=== PATIENT | female | born 1970 | race Caucasian/White ===

== ENCOUNTER 2019-04-05 09:00 | Emergency (ER) | payer OTHER ==
[~2019-04-05] VITALS: Ht 167.6 cm; Wt 122.5 kg
[~2019-04-05 09:00] MED LIST: FLUO20CA19 PO; HYDR-3164 PO; HYDR1TAB13 PO; IBUP-1060 PO; LEVO50TA5 PO; MULT1TAB52 PO; NAPR-683 PO; OLAN5TAB9 PO
[2019-04-05 09:15] VITALS: BP 136/91
[2019-04-05] MEDS ORDERED: KETOROLAC 15 MG/ML VIAL. IVP ONE (09:15)
[2019-04-05] MEDS ORDERED: METOCLOPRAMIDE HCL 10 MG/2 ML VIAL. IVP ONE (09:15)
[2019-04-05] MEDS ORDERED: IV NORMAL SALINE 1000ML BAG 1,000 ML IV ONE (09:30)
[2019-04-05] MEDS ORDERED: TAMSULOSIN 0.4 MG CAP.ER.24H. PO ONE (09:30)
--- NOTE | 2019-04-05 09:35 | PHYS DOC ---
Past Medical History Past Medical History: Anxiety, Hypothyroid, Kidney Stone Past Surgical History: Cholecystectomy, Tonsillectomy, Other Additional Past Surgical Histo: PARTIAL HYST,URETERAL STENT,LITHOTRIPSY Additional Information: Nonsmoker Alcohol Use: Rarely Drug Use: None Adult General Chief Complaint Chief Complaint: FLANK PAIN HPI HPI Patient is a 48-year-old female with a past medical history of kidney stones presents to the emergency department with confirmed kidney stones on CT scan done as an outpatient and right flank pain. Patient states that she was seen outpatient yesterday in [place] by her PCP because she was starting to feel like she had a kidney stone. [facility], outpatient CT scan showed a 10 mm and 2 mm stone in the right kidney with a 4 mm stone in the right ureter and to 2 mm stones in the left kidney. Patient denies fever, chills, nausea, vomiting, chest pain, shortness of breath, dysuria, change in frequency of urination. Patient states that her urine has been reddish color for the last 2 days. Patient has a prior history of hysterectomy. Patient is presenting to the emergency department today because the pain has got worse and she was not discharged with any pain medication yesterday. Review of Systems Review of Systems Constitutional: Denies fever or chills Eyes: Denies redness or eye pain HENT: Denies nasal congestion or sore throat Respiratory: Denies cough or shortness of breath Cardiovascular: Denies chest pain or palpitations GI: Denies abdominal pain, nausea, or vomiting : Denies dysuria, reports hematuria Musculoskeletal: Denies back pain or joint pain; reports right flank pain Integument: Denies rash or skin lesions Neurologic: Denies headache, focal weakness or sensory changes Complete systems were reviewed and found to be within normal limits, except as documented in this note. Current Medications Current Medications Current Medications Medications (Trade) Dose Ordered Sig/Gloria Start Time Stop Time Status Last Admin Dose Admin Ketorolac Tromethamine (Toradol 15mg Vial) 15 mg 1X ONCE 04/05/19 09:15 04/05/19 09:25 DC 04/05/19 09:43 15 MG Metoclopramide HCl (Reglan Vial) 10 mg 1X ONCE 04/05/19 09:15 04/05/19 09:25 DC 04/05/19 09:44 10 MG Sodium Chloride 1,000 ml @ 1,000 mls/hr 1X ONCE 04/05/19 09:30 04/05/19 10:29 DC 04/05/19 09:41 1,000 MLS/HR Tamsulosin HCl (Flomax) 0.4 mg 1X ONCE 04/05/19 09:30 04/05/19 09:31 DC 04/05/19 09:44 0.4 MG Allergies Allergies Allergies Coded Allergies Type Severity Reaction Last Updated Verified Penicillins Allergy Intermediate Hives 03/16/16 Yes Physical Exam Physical Exam Constitutional: Well developed, well nourished, no acute distress, non-toxic appearance HENT: Normocephalic, atraumatic, oropharynx moist Eyes: Conjunctiva normal, no discharge Neck: Normal range of motion, no tenderness, supple Cardiovascular: Heart rate normal, regular rhythm Lungs & Thorax: Bilateral breath sounds clear to auscultation, no wheezing Abdomen: Soft, no tenderness Skin: Warm, dry, no erythema, no rash Back: No tenderness, CVA tenderness on the right Extremities: No tenderness, ROM intact, no edema Neurologic: Alert and oriented X 3, no focal deficits noted Psychologic: Affect normal, judgement normal Current Patient Data Vital Signs Vital Signs Date Time Temp Pulse Resp B/P (MAP) Pulse Ox O2 Delivery O2 Flow Rate FiO2 04/05/19 09:15 97.8 105 18 136/91 (106) 95 Room Air 97.8 Lab Values Laboratory Tests Test 04/05/19 09:08 04/05/19 09:11 04/05/19 09:32 Urine Collection Type Unknown Urine Color Yellow Urine Clarity Clear Urine pH 8.0 Urine Specific [place] 1.015 Urine Protein Negative mg/dL (NEG-TRACE) Urine Glucose (UA) Negative mg/dL (NEG) Urine Ketones (Stick) Negative mg/dL (NEG) Urine Blood Large (NEG) Urine Nitrite Negative (NEG) Urine Bilirubin Negative (NEG) Urine Urobilinogen Dipstick 1.0 mg/dL (0.2 mg/dL) Urine Leukocyte Esterase Small (NEG) Urine RBC Tntc /HPF (0-2) Urine WBC 5-1 /HPF (0-4) Urine Squamous Epithelial Cells Many /LPF Urine Bacteria Moderate /HPF (0-FEW) Urine Mucus Marked /LPF POC Urine HCG, Qualitative Hcg negative (Negative) White Blood Count 6.7 x10^3/uL (4.0-11.0) Red Blood Count 4.81 x10^6/uL (3.50-5.40) Hemoglobin 14.0 g/dL (12.0-15.5) Hematocrit 41.7 % (36.0-47.0) Mean Corpuscular Volume 87 fL (79-100) Mean Corpuscular Hemoglobin 29 pg (25-35) Mean Corpuscular Hemoglobin Concent 34 g/dL (31-37) Red Cell Distribution Width 13.2 % (11.5-14.5) Platelet Count 258 x10^3/uL (140-400) Neutrophils (%) (Auto) 63 % (31-73) Lymphocytes (%) (Auto) 28 % (24-48) Monocytes (%) (Auto) 7 % (0-9) Eosinophils (%) (Auto) 2 % (0-3) Basophils (%) (Auto) 1 % (0-3) Neutrophils # (Auto) 4.2 x10^3/uL (1.8-7.7) Lymphocytes # (Auto) 1.9 x10^3/uL (1.0-4.8) Monocytes # (Auto) 0.4 x10^3/uL (0.0-1.1) Eosinophils # (Auto) 0.1 x10^3/uL (0.0-0.7) Basophils # (Auto) 0.1 x10^3/uL (0.0-0.2) Sodium Level 139 mmol/L (136-145) Potassium Level 4.0 mmol/L (3.5-5.1) Chloride Level 102 mmol/L (98-107) Carbon Dioxide Level 26 mmol/L (21-32) Anion Gap 11 (6-14) Blood Urea Nitrogen 13 mg/dL (7-20) Creatinine 0.8 mg/dL (0.6-1.0) Estimated GFR (Cockcroft-Gault) 77.2 BUN/Creatinine Ratio 16 (6-20) Glucose Level 107 mg/dL (70-99) H Calcium Level 8.8 mg/dL (8.5-10.1) Magnesium Level 1.9 mg/dL (1.8-2.4) Total Bilirubin 0.9 mg/dL (0.2-1.0) Aspartate Amino Transferase (AST) 23 U/L (15-37) Alanine Aminotransferase (ALT) 24 U/L (14-59) Alkaline Phosphatase 89 U/L (46-116) Total Protein 7.6 g/dL (6.4-8.2) Albumin 3.5 g/dL (3.4-5.0) Albumin/Globulin Ratio 0.9 (1.0-1.7) L Lipase 103 U/L (73-393) Laboratory Tests 04/05/19 09:32 Laboratory Tests 04/05/19 09:32 EKG EKG [] Radiology/Procedures Radiology/Procedures [] Course & Med Decision Making Course & Med Decision Making Pertinent Labs studies reviewed. (See chart for details) Patient is a 48-year-old female with past medical history of kidney stones is presenting to the emergency department with right flank pain and CT scan done as an outpatient showing obstructing kidney stone on right Patient seen and examined at bedside. Physical exam was significant for right-sided flank tenderness. Labs ordered. Pain addressed. UA likely contaminated, negative except for numerous RBCs. All other labs negative. And will be discharged with urology referral for outpatient management of kidney stones. Patient stable for discharge with outpatient follow-up with PCP/Urology. Discussed findings and plan with patient and family, who acknowledge understanding and agreement. Dragon Disclaimer Dragon Disclaimer This electronic medical record was generated, in whole or in part, using a voice recognition dictation system. Departure Departure Impression: Primary Impression: Ureteral stone with hydronephrosis Disposition: HOME, SELF-CARE Condition: STABLE Patient Instructions: Diet for Kidney Stones, Kidney Stones, [id number] Additional Instructions: May also use over the counter Ibuprofen (Motrin) for pain as needed. Max 600mg (three over the counter tabs) which you can take up to 3 times daily. Scripts Tamsulosin Hcl (FLOMAX) 0.4 Mg Cap.er.24h 1 CAP PO DAILY, #10 CAP Prov: JONATHAN CARTAGENA DO 04/05/19 Ondansetron (ONDANSETRON ODT) 4 Mg Tab.rapdis 1 TAB PO PRN Q6-8HRS PRN for NAUSEA, #16 TAB Prov: JONATHAN CARTAGENA DO 04/05/19 Hydrocodone/Apap 5-325 (NORCO 5-325 TABLET) 1 Each Tablet 0.5-1 TAB PO PRN Q6HRS PRN for PAIN, #14 TAB 0 Refills Prov: JONATHAN CARTAGENA DO 04/05/19 JONATHAN CARTAGENA DO Apr 05, 2019 09:35
[2019-04-05 09:36] LABS: BILIRUBIN,URINE NEGATIVE (NEG); CLARITY,URINE CLEAR; COLOR,URINE YELLOW; NITRITE,URINE NEGATIVE (NEG); PROTEIN,URINE NEGATIVE (NEG-TRACE)
[2019-04-05 09:39] LABS: BASO # 0.1 x10^3/uL (0.0-0.2); BASO % 1 % (0-3); EOS # 0.1 x10^3/uL (0.0-0.7); EOS % 2 % (0-3); HEMATOCRIT 41.7 % (36.0-47.0); LYMPH # 1.9 x10^3/uL (1.0-4.8); LYMPH % 28 % (24-48); MEAN CORPUSCULAR HEMOGLOBIN 29 pg (25-35); MEAN CORPUSCULAR HGB CONC 34 g/dL (31-37); MEAN CORPUSCULAR VOLUME 87 fL (79-100); MONO # 0.4 x10^3/uL (0.0-1.1); MONO % 7 % (0-9); NEUT # 4.2 x10^3/uL (1.8-7.7); NEUT % 63 % (31-73); PLATELET COUNT 258 x10^3/uL (140-400); RED BLOOD COUNT 4.81 x10^6/uL (3.50-5.40); RED CELL DISTRIBUTION WIDTH 13.2 % (11.5-14.5); WHITE BLOOD COUNT 6.7 x10^3/uL (4.0-11.0)
[2019-04-05 09:45] LABS: RBC,URINE TNTC /HPF (0-2); SQUAMOUS EPITHELIAL CELL,UR MANY /LPF
[2019-04-05 09:47] LABS: BACTERIA,URINE MODERATE /HPF (0-FEW)
[2019-04-05 09:49] LABS: CALCIUM 8.8 mg/dL (8.5-10.1); CREATININE 0.8 mg/dL (0.6-1.0); GFR 77.2
[2019-04-05 09:55] LABS: ALBUMIN 3.5 g/dL (3.4-5.0); ALBUMIN/GLOBULIN RATIO 0.9 (1.0-1.7); MAGNESIUM 1.9 mg/dL (1.8-2.4); TOTAL BILIRUBIN 0.9 mg/dL (0.2-1.0); TOTAL PROTEIN 7.6 g/dL (6.4-8.2)
[2019-04-05] MEDS ORDERED: ONDA4TAB12 PO (10:04)
[2019-04-05] MEDS ORDERED: TAMS0.4C97 PO (10:04)
[2019-04-05] MEDS ORDERED: HYDR-3164 PO (10:04)
== END 2019-04-05 10:30 | disposition home or self-care (01) ==
LOC: ER 09:00
DX: N13.2 Hydronephrosis with renal and ureteral calculous obstruction (principal); E03.9 Hypothyroidism, unspecified; Z90.711 Acquired absence of uterus with remaining cervical stump; Z90.49 Acquired absence of other specified parts of digestive tract; Z96.0 Presence of urogenital implants; Z88.0 Allergy status to penicillin
CPT/HCPCS: 36415; 80053; 81001; 81025; 83690; 83735; 85025; 87086; 96374; 96375; 99284; J1885; J2765; J7030